=== PATIENT | female | born 1970 | race Caucasian/White ===

== ENCOUNTER 2017-06-12 12:01 | Emergency (ER) | payer BC ==
[~2017-06-12] VITALS: Wt 60.0 kg
[~2017-06-12 12:01] MED LIST: AUG875 PO; TRAM50TA2 PO
--- NOTE | 2017-06-12 13:12 | RADRPT ---
PROCEDURE: XR Finger. CLINICAL INDICATION: Left fifth finger pain and trauma. TECHNIQUE: Three views of the left the fifth finger. COMPARISON: None. FINDINGS: The osseous structures are intact. No destructive bony lesions are observed. Interosseous spaces harley ear normal. The soft tissues are unremarkable. IMPRESSION: No visualized traumatic injury. If there is high clinical suspicion for traumatic injury, further evaluation with CT should be consi dered. RPTAT: AA .Mukund Reyes MD, Date Time Electronically viewed and signed by .Mukund Reyes MD, MD on 06/12/2017 13:11 .P/
[2017-06-12] MEDS ORDERED: IBUPROFEN 600 MG TAB PO ONE (13:30)
[2017-06-12] MEDS ORDERED: IBUP-1542 PO (13:36)
--- NOTE | 2017-06-12 13:41 | ERD ---
ER Documentation Chief Complaint Date/Time DATE: 06/12/17 TIME: 13:39 Chief Complaint LEFT HAND 4TH/5TH DIGIT PAIN S/P FALL 06/11 NO LOC HPI This 38-year-old female slipped and fell at a store yesterday. She caught herself on a shelf or landed on his shelf. She is not sure which. She complains of pain in her left fifth digit with some bruising. She has no restricted range of motion of the mildly due to pain but no deficits, bleeding or lacerations. ROS All systems reviewed and are negative except as per history of present illness. Medications Home Meds Active Scripts Ibuprofen* (Motrin*) 600 Mg Tab, 600 MG PO Q6, #20 TAB Prov:JAIDA ANDRADE MD 06/12/17 Tramadol HCl (Tramadol HCl) 50 Mg Tab, 50 MG PO Q4 Y for PAIN, #20 TAB Prov:EL ARANDA 04/30/15 Amoxicillin-Clavulanate K* (Augmentin*) 875 Mg Tab, 875 MG PO BID for 7 Days, TAB Prov:EL ARANDA 04/30/15 Allergies Allergies: Coded Allergies: No Known Allergy (Unverified , 04/30/15) PMhx/Soc Medical and Surgical Hx: pt denies Medical Hx History of Surgery: Yes (CSECTION) Anesthesia Reaction: No Hx Neurological Disorder: No Hx Respiratory Disorders: No Hx Cardiac Disorders: No Hx Psychiatric Problems: No Hx Miscellaneous Medical Probl: No Hx Alcohol Use: No Hx Substance Use: No Hx Tobacco Use: No Smoking Status: Never smoker Physical Exam Vitals Vital Signs Date Time Temp Pulse Resp B/P Pulse Ox O2 Delivery O2 Flow Rate FiO2 06/12/17 12:08 97.5 65 20 102/58 100 Physical Exam Const: [], [id number] per Head: Atraumatic Eyes: Normal Conjunctiva ENT: Normal External Ears, Nose and Mouth. Neck: Full range of motion..~ No meningismus. Resp: Clear to auscultation bilaterally Cardio: Regular rate and rhythm, no murmurs Abd: Soft, non tender, non distended. Normal bowel sounds Skin: No petechiae or rashes Back: No midline or flank tenderness Ext: No cyanosis, or edema. There is some bruising around the PIP joint of the left fifth digit. There is no restricted range of motion weakness. There is no evidence of tendon, neurologic deficits or ischemia. Neur: Awake and alert Psych: Normal Mood and Affect Results 24 hrs Current Medications Medications (Trade) Dose Ordered Sig/Francisca Route PRN Reason Start Time Stop Time Status Last Admin Dose Admin Ibuprofen (Motrin) 600 mg ONCE ONCE PO 06/12/17 13:30 06/12/17 13:31 DC 06/12/17 13:17 Procedures/MDM X-ray left fifth finger 2V Interpreted by me: Bones: No fracture Joints: No dislocation Foreign body: None. Impression have a normal left fifth digit x-ray Patient was placed in the fifth digit middle splint. Splint Assessment: Neurovascularly intact post splint placement with good fit. Patient has signs and symptoms of the left fifth digit sprain without evidence of deficits, ischemia, infection. She will be treated with a splint, ibuprofen for pain and primary care and orthopedic follow-up for pain next week. She should return sooner for new or worsening symptoms as directed after instructions. There is no other signs of additional injuries due to her fall yesterday such as head injury or neck injury Departure Diagnosis: Primary Impression: Finger sprain Encounter type: initial encounter Finger: little finger Sprain of finger site: unspecified site Laterality: left Qualified Code: S63.617A - Sprain of left little finger, unspecified site of finger, initial encounter Condition: Stable Patient Instructions: Sprain Finger Referrals: ALVARADO MOLINA MD Additional Instructions: X-ray read as normal. See primary doctor orthopedist for pain next week. Recheck otherwise for new or worsening symptoms. May need authorization from primary doctor for orthopedist visit. JAIDA ANDRADE MD Jun 12, 2017 13:40
== END 2017-06-12 14:18 | disposition home or self-care (01) ==
LOC: FTE 12:01
DX: S63.617A Unspecified sprain of left little finger, initial encounter (principal); W01.0XXA Fall on same level from slipping, tripping and stumbling without subsequent striking against object, initial encounter; Y92.512 Supermarket, store or market as the place of occurrence of the external cause
CPT/HCPCS: 73140

== ENCOUNTER 2019-04-29 21:53 | Emergency (ER) | payer BC ==
[~2019-04-29] VITALS: Ht 154.9 cm; Wt 59.0 kg
[~2019-04-29 21:53] MED LIST changes: +IBUP-1542 PO
[2019-04-29 22:00] VITALS: Ht 154.9 cm; Wt 59.0 kg
--- NOTE | 2019-04-29 23:25 | ERD ---
ER Documentation Chief Complaint Chief Complaint SOB AND NUMBNESS/TINGLING ALL EXTREMITIES X 30 MIN. HPI This is a 48-year-old female who comes in for bilateral carpopedal spasms, cough, and chest pain rating to the back for the last 30 minutes. Patient states that her son has been sick with respiratory illness recently, and she has been having a cough and URI like symptoms. She works on telemetry for work, and explained the symptoms, and currently feels very anxious. She denies nausea vomiting, she has no cardiac history, she has no history of diabetes, no history of hypertension. ROS All systems reviewed and are negative except as per history of present illness. Medications Home Meds Active Scripts Ibuprofen* (Motrin*) 600 Mg Tab, 600 MG PO Q6, #20 TAB Prov:JAIDA ANDRADE MD 06/12/17 Tramadol HCl (Tramadol HCl) 50 Mg Tab, 50 MG PO Q4 PRN for PAIN, #20 TAB Prov:EL ARANDA 04/30/15 Amoxicillin-Clavulanate K* (Augmentin*) 875 Mg Tab, 875 MG PO BID for 7 Days, TAB Prov:EL ARANDA 04/30/15 Allergies Allergies: Coded Allergies: No Known Allergy (Unverified , 04/30/15) PMhx/Soc History of Surgery: Yes (CSECTION) Anesthesia Reaction: No Hx Neurological Disorder: No Hx Respiratory Disorders: No Hx Cardiac Disorders: No Hx Psychiatric Problems: No Hx Miscellaneous Medical Probl: No Hx Alcohol Use: No Hx Substance Use: No Hx Tobacco Use: No Smoking Status: Never smoker Physical Exam Vitals Vital Signs Date Temp Pulse Resp B/P (MAP) Pulse Ox O2 O2 Flow FiO2 Time Delivery Rate 04/30/19 74 17 103/74 100 Room Air 01:30 (84) 04/30/19 71 18 96/56 (69) 100 Room Air 01:00 04/30/19 65 16 109/75 100 Room Air 00:30 (86) 04/30/19 65 39 102/55 100 Room Air 00:00 (71) 04/29/19 66 31 104/65 100 Room Air 23:30 (78) 04/29/19 66 16 114/64 99 Room Air 23:00 (81) 04/29/19 73 16 114/70 100 Room Air 22:30 (85) 04/29/19 97.5 74 20 115/76 100 22:00 (89) 04/29/19 97.5 74 20 115/75 100 Room Air 22:00 (88) Physical Exam Const: Pleasant, anxious appearing, well-developed well-nourished Head: Atraumatic Eyes: Normal Conjunctiva ENT: Normal External Ears, Nose and Mouth. Neck: Full range of motion. No meningismus. Resp: Clear to auscultation bilaterally Cardio: Regular rate and rhythm, no murmurs Abd: Soft, non tender, non distended. Normal bowel sounds Skin: No petechiae or rashes Back: No midline or flank tenderness Ext: No cyanosis, or edema Neur: Awake and alert, cranial nerves II 12 intact, no cerebellar ataxia, strength 5 out of 5 Psych: Normal Mood and Affect Result Diagram: 04/29/191 04/29/191 Results 24 hrs Laboratory Tests Test 04/29/19 22:11 04/29/19 22:30 04/29/19 23:09 04/29/19 23:41 White Blood Count 8.8 10^3/ul Red Blood Count 4.12 10^6/ul Hemoglobin 12.1 g/dl Hematocrit 36.9 % Mean Corpuscular 89.6 fl Volume Mean Corpuscular 29.4 pg Hemoglobin Mean Corpuscular 32.8 g/dl Hemoglobin Concent Red Cell Distribution 11.9 % Width Platelet Count 195 10^3/UL Mean Platelet Volume 10.3 fl Immature Granulocytes 0.200 % % Neutrophils % 63.8 % Lymphocytes % 24.3 % Monocytes % 8.7 % Eosinophils % 2.8 % Basophils % 0.2 % Nucleated Red Blood 0.0 /100WBC Cells % Immature Granulocytes 0.020 10^3/ul # Neutrophils # 5.6 10^3/ul Lymphocytes # 2.1 10^3/ul Monocytes # 0.8 10^3/ul Eosinophils # 0.3 10^3/ul Basophils # 0.0 10^3/ul Nucleated Red Blood 0.0 10^3/ul Cells # Sodium Level 140 mmol/L Potassium Level 3.8 mmol/L Chloride Level 104 mmol/L Carbon Dioxide Level 21 mmol/L Anion Gap 15 Blood Urea Nitrogen 8 mg/dl Creatinine 0.64 mg/dl Est Glomerular > 60 mL/min Filtrat Rate mL/min Glucose Level 150 mg/dl Calcium Level 9.4 mg/dl Total Bilirubin 0.4 mg/dl Direct Bilirubin 0.00 mg/dl Indirect Bilirubin 0.4 mg/dl Aspartate Amino 47 IU/L Transf (AST/SGOT) Alanine 32 IU/L Aminotransferase (ALT /SGPT) Alkaline Phosphatase 105 IU/L Troponin I < 0.012 ng/ml Total Protein 8.3 g/dl Albumin 4.5 g/dl Globulin 3.80 g/dl Albumin/Globulin 1.18 Ratio Bedside Glucose 109 mg/dL Bedside Urine pH 7.0 (LAB) Bedside Urine Protein Negative (LAB) Bedside Urine Glucose Negative (UA) Bedside Urine Ketones Negative (LAB) Bedside Urine Blood Trace-intact Bedside Urine Nitrite Negative (LAB) Bedside Urine Trace Leukocyte Esterase (L POC Beta HCG, NEGATIVE Qualitative Current Medications Medications Dose Sig/Francisca Start Time Status Last (Trade) Ordered Route PRN Stop Time Admin Dose Reason Admin Ketorolac 15 mg ONCE STAT 04/29/19 DC 04/29/19 Tromethamine IM 23:26 04/29/19 23:53 (Toradol) 23:29 Procedures/MDM This is a pleasant 48-year-old female presents for evaluation of cough, chest congestions, and carpopedal spasm. On exam patient was very anxious appearing, and I discussed with her, and she stated that she believed it was related to her URI symptoms. Given her age and cardiac work-up was initiated, this was negative, with an EKG showing no evidence of ischemia or arrhythmia, troponin was negative, her labs were also unremarkable showing no evidence of anemia, and no evidence of metabolic acidosis. She had a negative CT brain, and she had no focal symptoms concerning for acute or subacute CVA. On reassessment, the patient felt better, she remained hemodynamically stable in the ED, and at discharge she was in no distress. EKG: Rate/Rhythm: Normal Sinus Rhythm QRS, ST, T-waves: No changes consistent w/ acute ischemia Impression: No evidence of ischemia or arrhythmia Departure Diagnosis: Primary Impression: Upper respiratory tract infection URI type: unspecified URI Qualified Codes: J06.9 - Acute upper respiratory infection, unspecified Condition: Stable CHRISTIANO WEINBERG MD Apr 29, 2019 23:25
[2019-04-29] MEDS ORDERED: KETOROLAC 15 MG INJ IM STA (23:26)
[2019-04-30 01:30] VITALS: BP 103/74; PULSE 74; RESP 17
== END 2019-04-30 01:32 | disposition home or self-care (01) ==
LOC: E/R 21:53
DX: J06.9 Acute upper respiratory infection, unspecified (principal); R20.0 Anesthesia of skin
CPT/HCPCS: 70450; 71045; 80053; 81003; 81025; 82962; 84484; 85025; 93005; 96372; 99285; J1885